=== PATIENT | female | born 1950 | race Caucasian/White ===

== ENCOUNTER → 2018-06-21 | Outpatient (REF) | payer MEDICARE, OTHER ==
[~2018-06-21] MED LIST: AMLODIPINE2.5 MG PO; ATIVAN1 M1 PO; BABY ASPIRIN81 MG PO; CLONAZEPAM1 MG PO; DIGOXIN0.125 MG PO; DOXYCYCL HYC100 MG PO; ELIQUIS5 MG PO; EMBREL SC; FLECAINIDE100 MG PO; FLECAINIDE50 MG PO; GABAPENTIN100 MG PO; HYDROCHLOROT25 MG PO; LEVAQUIN750 MG PO; LEVOTHYROXIN137 MCG PO; LISINOPRIL40 MG PO; LOPID600 MG PO; LORAZEPAM0.5 MG PO; LORTAB 7.57.5 MG PO; METO100T50 PO; METOPROL TAR25 M1 PO; METOPROLOL PO; MUCINEX600 MG PO; NORCO1 TA2 PO; OXYCODONE HCL5 MG PO; PREDNISONE10 MG PO; PROTONIX40 M2 PO; SPIRONOLACTONE25 MG PO; SYNTHROID100 MCG PO; SYNTHROID88 MCG PO; UNABLE TO RECONCILE; XANAX0.5 MG PO; [UNRECOGNIZED DRUG - REMARK]
[2018-06-21 11:43] LABS: HEMATOCRIT 33.5 % (37.0-47.0); HEMOGLOBIN 10.6 g/dl (12.0-16.0); IMMATURE GRANULOCYTES 1.2 % (0.0-5.0); MEAN CELL VOLUME 91.5 fL CALC (80.0-100.0); MEAN CORPUSCULAR HGB CONC 31.6 g/L CALC (32.0-36.0); RED BLOOD COUNT 3.66 mill/uL (4.20-5.60); RED CELL DISTRI WIDTH 15.6 % (11.5-15.5)
[2018-06-21 12:18] LABS: ALBUMIN 5.2 g/dL (3.2-5.0); BILIRUBIN, TOTAL 0.7 mg/dL (0.0-1.4); C-REACTIVE PROTEIN 0.7 mg/dL (0-0.9); CREATININE 1.3 mg/dL (0.5-1.0); TOTAL PROTEIN 8.5 g/dL (6.3-8.2)
[2018-06-21 12:20] LABS: POTASSIUM 5.8 mmol/l (3.5-5.1)
== END | disposition home or self-care (01) ==
LOC: LAB 11:10
DX: M05.9 Rheumatoid arthritis with rheumatoid factor, unspecified (principal); Z79.899 Other long term (current) drug therapy